=== PATIENT | male | born 1945 | race Caucasian/White ===

== ENCOUNTER 2021-08-04 10:17 | Emergency (ER) | payer OTHER ==
[2021-08-04 11:14] LABS: BASOPHIL 0.5 % (0-2); EOSINOPHIL 3.3 % (0-7); HCT 41.2 % (42.0-52.0); HGB 14.2 g/dl (13.2-18.0); LYMPHOCYTE 32.7 % (15-48); MCH 32.6 pg (25.0-31.0); MCHC 34.5 g/dL (32.0-36.0); MCV 94.5 fL (78.0-100.0); MONOCYTE 10.8 % (0-12); MPV 10.3 fL (6.0-9.5); NRBC 0; PLT 122 K/uL (150-400); RBC 4.36 M/uL (4.70-6.00); RDW 13.2 % (11.5-14.0); WBC 5.7 K/uL (4.0-10.5)
[2021-08-04 11:28] LABS: INR 0.98 (0.9-1.2); PROTHROMBIN TIME 12.4 SECONDS (11.8-13.4); PTT 28.1 SECONDS (24.4-34.7)
[2021-08-04 11:34] LABS: ALBUMIN 3.9 g/dL (3.4-5.0); BILIRUBIN - TOTAL 0.6 mg/dL (0.2-1.0); BUN/CREAT RATIO (CALC) 22.2 RATIO; CREATININE 0.99 mg/dL (0.67-1.17); GLOBULIN (CALCULATION) 3.2 g/dL; POTASSIUM 4.4 mmol/L (3.5-5.1); TOTAL PROTEIN 7.1 g/dL (6.4-8.2)
[2021-08-04 11:41] LABS: CKMB 3.2 ng/mL (0.0-3.6)
[2021-08-04] MEDS ORDERED: KEPPRA250 MG PO (17:33)
== END 2021-08-04 17:43 | disposition home or self-care (01) ==
LOC: FER 10:17
PROVIDERS: Emergency Medicine
DX: D32.9 Benign neoplasm of meninges, unspecified (principal)
CPT/HCPCS: 36415; 70450; 70544; 70548; 70553; 71045; 80053; 80061; 82550; 82553; 83874; 84484; 85025; 85610; 85730; 93005; A9579

== ENCOUNTER 2021-12-18 14:21 | Emergency (ER) | payer OTHER ==
[~2021-12-18 14:21] MED LIST: KEPPRA250 MG PO
[2021-12-18 15:33] LABS: BASOPHIL 0.4 % (0-2); EOSINOPHIL 2.2 % (0-7); HCT 44.2 % (42.0-52.0); HGB 15.2 g/dl (13.2-18.0); LYMPHOCYTE 21.9 % (15-48); MCH 31.7 pg (25.0-31.0); MCHC 34.4 g/dL (32.0-36.0); MCV 92.3 fL (78.0-100.0); MONOCYTE 7.5 % (0-12); MPV 9.7 fL (6.0-9.5); NEUTROPHIL 67.7 % (41-80); NRBC 0; PLT 136 K/uL (150-400); RBC 4.79 M/uL (4.70-6.00); RDW 13.2 % (11.5-14.0)
[2021-12-18 16:05] LABS: INR 1.06 (0.9-1.2); PROTHROMBIN TIME 13.2 SECONDS (11.8-13.4); PTT 27.9 SECONDS (24.4-34.7)
[2021-12-18 16:06] LABS: D-DIMER 0.32 ug/mLFEU (0.00-0.41)
[2021-12-18 16:17] LABS: CORONAVIRUS 2019 SARS-COV-2 NEGATIVE (NEGATIVE); INFLUENZA A NAA NEGATIVE (NEGATIVE)
[2021-12-18 16:25] LABS: ALBUMIN 4.1 g/dL (3.4-5.0); BILIRUBIN - TOTAL 0.5 mg/dL (0.2-1.0); BUN/CREAT RATIO (CALC) 19.1 RATIO; CREATININE 0.94 mg/dL (0.67-1.17); GLOBULIN (CALCULATION) 3.5 g/dL; MAGNESIUM 1.7 mg/dL (1.8-2.4); POTASSIUM 4.2 mmol/L (3.5-5.1); TOTAL PROTEIN 7.6 g/dL (6.4-8.2)
[2021-12-18 17:36] LABS: COLOR YELLOW (YELLOW)
[2021-12-18 17:37] LABS: BILIRUBIN NEGATIVE (NEGATIVE); BLOOD NEGATIVE Ery/uL (NEGATIVE); CLARITY CLEAR (CLEAR); GLUCOSE (U) NORMAL (NORMAL); LEUKOCYTES NEGATIVE Leu/uL (NEGATIVE); NITRITE NEGATIVE (NEGATIVE); PROTEIN NEGATIVE (NEGATIVE); UROBILINOGEN 0.2 mg/dL (0.2-1.0); pH 6.5 (5.0-9.0)
== END 2021-12-18 18:47 | disposition home or self-care (01) ==
LOC: FER 14:21
PROVIDERS: Emergency Medicine
DX: R53.1 Weakness (principal); R27.0 Ataxia, unspecified; I10 Essential (primary) hypertension; Z20.822 Contact with and (suspected) exposure to COVID-19; Z28.311 Partially vaccinated for COVID-19
CPT/HCPCS: 36415; 70450; 71045; 80053; 80156; 81003; 82728; 83735; 84145; 84484; 85025; 85379; 85610; 85730; 87088; 93005; U0002

== ENCOUNTER 2022-06-14 16:51 | Emergency (ER) | payer OTHER | END 2022-06-14 21:00 | disposition home or self-care (01) | LOC: FER 16:51 | DX: S46.911A Strain of unspecified muscle, fascia and tendon at shoulder and upper arm level, right arm, initial encounter (principal); S50.811A Abrasion of right forearm, initial encounter; S60.511A Abrasion of right hand, initial encounter; I10 Essential (primary) hypertension; Z23 Encounter for immunization; Z87.891 Personal history of nicotine dependence; Z79.899 Other long term (current) drug therapy; W19.XXXA Unspecified fall, initial encounter; Y93.01 Activity, walking, marching and hiking; Y92.830 Public park as the place of occurrence of the external cause; Z28.311 Partially vaccinated for COVID-19 | CPT/HCPCS: 73090; 90471; 90715 ==